=== PATIENT | male | born 1970 | race Caucasian/White ===

== ENCOUNTER 2021-12-26 16:25 | Emergency (ER) | payer BC, OTHER ==
[2021-12-26] MEDS ORDERED: DIPHTH,PERTUSS(ACELL),TET 0.5 ML DISP.SYRIN IM ONE ×2 (16:39→17:30)
[2021-12-26 16:54] VITALS: BP 139/82; PULSE 82; RESP 20; TEMP 98.9; BMI 24.3
== END 2021-12-26 18:01 | disposition home or self-care (01) ==
LOC: EDSEX 16:25 → FER 16:25
PROC: 0HQGXZZ Repair Left Hand Skin, External Approach (ICD-10-PCS; principal; 2021-12-26)
PROC: 3E0234Z Introduction of Serum, Toxoid and Vaccine into Muscle, Percutaneous Approach (ICD-10-PCS; 2021-12-26)
DX: S61.215A Laceration without foreign body of left ring finger without damage to nail, initial encounter (principal)
CPT/HCPCS: 90715; 99283-25